=== PATIENT | female | born 1990 | race Hispanic/Latino ===

== ENCOUNTER 2016-04-08 17:45 | Emergency (ER) | payer OTHER ==
[2016-04-08] MEDS ORDERED: NAPROXEN 250 MG TAB As Ordered ONE (18:18)
--- NOTE | 2016-04-08 19:20 | REPUSA ---
CLINICAL HISTORY: Pelvic pain, irregular menses TECHNIQUE: Ultrasound of the pelvis was performed. ULTRASOUND PELVIS : Uterus: 11.2 x 5.7 x 5.3 cm. Normal without masses. Endometrial stripe: 2.2 cm thickness. Right ovary: 4.2 x 3.3 x 3.3 cm, containing a dominant follicle measuring 2.1 cm. Normal vascular nanette w. Left ovary: 2.8 x 2.9 x 1.8 cm. No masses. Normal vascular flow. Pelvic fluid: None. IMPRESSION: 1. Somewhat thickened endometrium without discrete mass. Recommend follow-up ultrasound in4 to 6 week s to assess for normal menstrual variation. 2. 2.1 cm right ovarian follicle.
--- NOTE | 2016-04-08 19:39 | EDDOCDS ---
Nurse's Notes [facility] Name: Helena Gould Age: 25 yrs Sex: Female : 1990 Arrival Date: 04/08/2016 Time: 17:45 Bed PR2 / Private MD: Anju Tafoya PA-C Diagnosis: Pelvic and perineal pain-left;Cystitis Presentation: 04/08 17:49 Presenting complaint: Patient states: Lower left abdominal pain since Wednesday, also ck1 reports pain with intercourse. Has hx of ovarian cyst on left. Denies vaginal bleeding, denies NVD. Risk factors: the patient reports no vaginal bleeding. Adult Sepsis Screening: The patient does not have new or worsening altered mentation. Patient's respiratory rate is less than 22. Systolic blood pressure is greater than 100. Patient has a qSOFA score of 0- Negative Sepsis Screen. Suicide/Homicide risk assessment- the patient denies having any suicidal and/or homicidal ideations and does not present with any other emotional, behavioral or mental health complaints. Status: The patient is a dependent. Transition of care: patient was not received from another setting of care. 17:49 Acuity: MAE Level 3 ck1 17:49 Method Of Arrival: Walkin/Carried/Asstd ck1 Triage Assessment: 17:52 General: Appears in no apparent distress, comfortable, Behavior is appropriate for age, ck1 cooperative. Pain: Location: left lower quadrant Pain currently is 6 out of 10 on a pain scale. At worst was 9 out of 10 on a pain scale. HIV screening NA for this visit Offered previously. Respiratory: Respiratory effort is unlabored, Respiratory pattern is regular, symmetrical. GI: Denies diarrhea, nausea, vomiting. : Denies burning with urination, urinary frequency, vaginal bleeding. Derm: Skin is pink, warm & dry. 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 none - PMHx: Ovarian cyst; - PSHx: Cholecystectomy; - Social history: Smoking status: Patient uses tobacco products, current some day smoker. No barriers to communication noted, The patient speaks fluent Romansh, Speaks appropriately for age. - Family history: Not pertinent. - : The pt / caregiver states he / she is not on anticoagulants. Home medication list is obtained from the patient. - Exposure Risk Screening:: None identified. Screenin:36 Screening information is obtained from the patient. Fall risk: No risks identified. ttb Assistance ADL's: requires no assistance with activities of daily living. Abuse/DV Screen: The patient / caregiver reports he/she is: not in a situation that causes fear, pain or injury. Nutritional screening: No deficits noted. Advance Directives: Currently, there is no health care proxy. home support is adequate. Assessment: 19:36 General: Appears in no apparent distress, well nourished, well groomed, Behavior is ttb appropriate for age, cooperative, pleasant. Pain: Location: lower abd, mild now. Neurological: Level of Consciousness is awake, alert. Cardiovascular: Chest pain is denied. Respiratory: No deficits noted. Airway is patent Respiratory effort is even, unlabored. GI: Abdomen is non- distended Abd is soft Reports lower abdominal pain. Derm: Skin is normal. Vital Signs: 17:47 BP 128 / 66; Pulse 83; Resp 18; Temp 99.1; Pulse Ox 100% ; Weight 60.78 kg; Height 5 elp ft. 3 in. (160.02 cm); 19:36 BP 111 / 76; Pulse 76; Resp 18; Temp 97.7; Pulse Ox 100% on R/A; Pain 2/10; ttb 17:47 Body Mass Index 23.74 (60.78 kg, 160.02 cm) [facility] Vitals: 17:47 Log In Time: April 08, 2016 at 17:45. el ED Course: 17:47 Patient visited by Mira Fonseca PCA. elp 17:47 Anju Tafoya is Private Physician. elp 17:47 Patient visited by Mira Fonseca PCA. elp 17:47 Patient moved to Waiting elp 17:48 Patient moved to Pre RCE elp 17:51 Triage Initiated ck1 17:53 Patient moved to Triage 3 ck1 18:02 Jc Helton PA-C is PSYCHIATRICP. cc10 18:02 Joselyn Hernandez MD is Attending Physician. cc10 18:02 Patient visited by Jc Helton PA-C. cc10 18:02 Patient visited by Coniski, Jc, PA-C. cc10 18:18 Patient name changed from Helena\S\\S\Ramirezaguilar\S\ to Helena\S\ \S\Ramirezaguilar. EDMS 18:20 [facility] Payment Agreement was scanned into [employer] and attached to record. gb 18:22 Patient moved to TR1 ck1 18:25 UA Sent. mcp 18:37 Patient moved to Ultrasound am17 18:52 Patient moved to TR1 am17 19:21 Patient moved to PR2 / 26 ttb 19:21 -US Pelvic Non-Ob Complete Returned. EDMS 19:28 Rene Cantu MD is Referral Physician. cc10 19:36 The patient / caregiver is instructed regarding the plan of care and ED course. ttb Accompanied by Friend, Patient has correct armband on for positive identification. 19:36 No IV's were initiated during this patient's visit. No procedures done that require ttb assistance. Urine collected. Clean catch specimen. Administered Medications: 18:22 Drug: Naproxen 500 mg [naproxen 250 mg tablet (2 tabs)] Route: PO; ck1 Point of Care Testing: Urine : 18:25 hCG Reading: Negative; [facility] Ranges: Order Results: Lab Order: UA; SPEC'M 04/08/17 18:15 Test: APPEARANCE, URINE; Value: HAZY; Range: CLEAR; Status: F Test: COLOR, URINE; Value: YELLOW; Range: YELLOW; Status: F Test: PH,URINE; Value: 5.0; Range: 5.0-9.0; Units: UNITS; Status: F Test: SPECIFIC GRAVITY URINE AUTO; Value: 1.028; Range: 1.002-1.035; Status: F Test: PROTEIN, URINE AUTO; Value: NEGATIVE; Range: NEGATIVE; Units: mg/dL; Status: F Test: GLUCOSE, URINE (UA) AUTO; Value: NEGATIVE; Range: NEGATIVE; Units: mg/dL; Status: F Test: KETONE, URINE AUTO; Value: TRACE; Range: NEGATIVE; Abnormal: Above high normal; Units: mg/dL; Status: F Test: UROBILINOGEN, URINE AUTO; Value: 2.0; Range: 0.0-2.0; Abnormal: Above high normal; Units: mg/dL; Status: F Test: BILIRUBIN, URINE AUTO; Value: NEGATIVE; Range: NEGATIVE; Status: F Test: NITRITE, URINE AUTO; Value: NEGATIVE; Range: NEGATIVE; Status: F Test: LEUKOCYTE ESTERASE, URINE AUTO; Value: 2+; Range: NEGATIVE; Abnormal: Above high normal; Status: F Test: BLOOD, URINE BLOOD; Value: NEGATIVE; Range: NEGATIVE; Status: F Test: WBC, URINE AUTO; Value: 6; Range: 0-3; Abnormal: Above high normal; Units: /HPF; Status: F Test: RBC, URINE AUTO; Value: 4; Range: 0-3; Abnormal: Above high normal; Units: /HPF; Status: F Test: BACTERIA, URINE AUTO; Value: 1+; Range: NEGATIVE; Abnormal: Above high normal; Status: F Test: SQUAMOUS EPITHELIAL CELL UR AU; Value: 3; Range: 0-6; Units: /HPF; Status: F Test: MUCUS, URINE; Value: SMALL; Range: NEGATIVE; Status: F Test: HYALINE CAST, URINE AUTO; Value: 0; Range: 0-1; Units: /LPF; Status: F Radiology Order: -US Pelvic Non-Ob Complete Test: -US Pelvic Non-Ob Complete REASON FOR EXAMINATION: Adnexal Pain r/o Torsion; ; CLINICAL HISTORY: Pelvic pain, irregular menses; TECHNIQUE: Ultrasound of the pelvis was performed.; ; ULTRASOUND PELVIS :; ; Uterus: 11.2 x 5.7 x 5.3 cm. Normal without masses.; ; Endometrial stripe: 2.2 cm thickness.; ; Right ovary: 4.2 x 3.3 x 3.3 cm, containing a dominant follicle measuring 2.1 cm. Normal vascular nanette; w.; ; Left ovary: 2.8 x 2.9 x 1.8 cm. No masses. Normal vascular flow.; ; Pelvic fluid: None.; ; IMPRESSION:; 1. Somewhat thickened endometrium without discrete mass. Recommend follow-up ultrasound in4 to 6 week; s to assess for normal menstrual variation.; 2. 2.1 cm right ovarian follicle.; ; Outcome: 19:28 Discharge ordered by Provider. cc10 19:36 Discharge Assessment: Patient awake, alert and oriented x 3. No cognitive and/or ttb functional deficits noted. Patient verbalized understanding of disposition instructions. Patient awake and alert. patient administered narcotics - no. The following High Risk Discharge criteria are identified: None. Discharged to home ambulatory, with friend. Condition: good Condition: stable Condition: improved. Discharge instructions given to patient, friend, Instructed on discharge instructions, follow up and referral plans. medication usage, no driving heavy equipment, no drinking with medication, Demonstrated understanding of instructions, medications, Pt was receptive of discharge instructions/ teaching. Prescriptions given X 2. Ultrasound Study completed. Property :Personal belongings accompany Pt. 19:38 Patient left the ED. ttb Signatures: Dispatcher [employer] Tiffany Maharaj, RN RN Mary Dubose, Reg Reg gb Michelle,MelRN RN ck1 Vikki Amezquita RN RN ttb Mira Fonseca, JOSE [employer]ARMAC[employer] BILLING ADJUDICATOR Bev Sam am17 Jc Helton, PA-C PA-C cc10 ZULEIKAD
--- NOTE | 2016-04-08 19:39 | EDDOCDS ---
Physician Documentation [facility] Name: Helena Gould Age: 25 yrs Sex: Female : 1990 Arrival Date: 04/08/2016 Time: 17:45 Bed PR2 / Private MD: Anju Tafoya PA-C Disposition: 04/08/16 19:28 Discharged to Home/Self Care. Impression: Pelvic and perineal pain - left, Cystitis. - Condition is Stable. - Discharge Instructions: Pelvic Pain, Female, Urinary Tract Infection. - Prescriptions for Ultram 50 mg Oral Tablet - take 1 tablet by ORAL route every 6 hours As needed MDD: 4 tabs; 12 tablet. Macrobid 100 mg Oral Capsule - take 100 milligrams by ORAL route every 12 hours for 5 days; 10 capsule. - Medication Reconciliation form. - Follow up: Rene Cantu MD; When: Call to arrange an appointment; Reason: Wound/Symptom Recheck, Recheck today's complaints, Worsening of conditions, Continuance of care. - Problem is an ongoing problem. - Symptoms have improved. Historical: - Allergies: No known drug Allergies; - Home Meds: 1. none - PMHx: Ovarian cyst; - PSHx: Cholecystectomy; - Social history: Smoking status: Patient uses tobacco products, current some day smoker. No barriers to communication noted, The patient speaks fluent Ukrainian, Speaks appropriately for age. - Family history: Not pertinent. - : The pt / caregiver states he / she is not on anticoagulants. Home medication list is obtained from the patient. - Exposure Risk Screening:: None identified. 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 3 in. (160.02 cm); 19:36 BP 111 / 76; Pulse 76; Resp 18; Temp 97.7; Pulse Ox 100% on R/A; Pain 2/10; ttb 17:47 Body Mass Index 23.74 (60.78 kg, 160.02 cm) elp MDM: 18:09 UCG by Nursing ordered. cc10 18:09 Naproxen 500 mg PO once; administer with food or milk ordered. cc10 18:09 Financial registration complete. gb 18:10 UA Ordered. EDMS 18:10 -US Pelvic Non-Ob Complete Ordered. EDMS 18:11 DUPLEX SCAN LIMITED (DOPPLER)+US Ordered. EDMS 18:20 [facility] Payment Agreement was scanned into [employer] and attached to record. gb 18:46 UA Reviewed. cc10 Point of Care Testing: Urine : 18:25 hCG Reading: Negative; mcp Ranges: Administered Medications: 18:22 Drug: Naproxen 500 mg [naproxen 250 mg tablet (2 tabs)] Route: PO; ck1 Signatures: Dispatcher [employer] EDSD Mary Naylor, Reg Reg gb Mel MartinezRN RN ck1 Vikki Amezquita RN RN Jc Cano, PA-C PA-C cc10 The chart was reviewed and I authenticate all verbal orders and agree with the evaluation and treatment provided.Attachments: 18:20 [facility] Payment Agreement gb MTDD
--- NOTE | 2016-04-10 20:39 | EDDOCDS ---
Physician Documentation [facility] Name: Helena Gould Age: 25 yrs Sex: Female : 1990 Arrival Date: 04/08/2016 Time: 17:45 Bed PR2 / Private MD: Anju Tafoya PA-C Disposition: 04/08/16 19:28 Discharged to Home/Self Care. Impression: Pelvic and perineal pain - left, Cystitis. - Condition is Stable. - Discharge Instructions: Pelvic Pain, Female, Urinary Tract Infection. - Prescriptions for Ultram 50 mg Oral Tablet - take 1 tablet by ORAL route every 6 hours As needed MDD: 4 tabs; 12 tablet. Macrobid 100 mg Oral Capsule - take 100 milligrams by ORAL route every 12 hours for 5 days; 10 capsule. - Medication Reconciliation form. - Follow up: Rene Cantu MD; When: Call to arrange an appointment; Reason: Wound/Symptom Recheck, Recheck today's complaints, Worsening of conditions, Continuance of care. - Problem is an ongoing problem. - Symptoms have improved. Historical: - Allergies: No known drug Allergies; - Home Meds: 1. none - PMHx: Ovarian cyst; - PSHx: Cholecystectomy; - Social history: Smoking status: Patient uses tobacco products, current some day smoker. No barriers to communication noted, The patient speaks fluent Irish, Speaks appropriately for age. - Family history: Not pertinent. - : The pt / caregiver states he / she is not on anticoagulants. Home medication list is obtained from the patient. - Exposure Risk Screening:: None identified. 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 3 in. (160.02 cm); 19:36 BP 111 / 76; Pulse 76; Resp 18; Temp 97.7; Pulse Ox 100% on R/A; Pain 2/10; ttb 17:47 Body Mass Index 23.74 (60.78 kg, 160.02 cm) elp MDM: 18:09 UCG by Nursing ordered. cc10 18:09 Naproxen 500 mg PO once; administer with food or milk ordered. cc10 18:09 Financial registration complete. gb 18:10 UA Ordered. EDMS 18:10 -US Pelvic Non-Ob Complete Ordered. EDMS 18:11 DUPLEX SCAN LIMITED (DOPPLER)+US Ordered. EDMS 18:20 [facility] Payment Agreement was scanned into [employer] and attached to record. gb 18:46 UA Reviewed. cc10 04/09 19:12 T-Sheet-- Draft Copy was scanned into [employer] and attached to record. klr Point of Care Testing: Urine : 04/08 18:25 hCG Reading: Negative; mcp Ranges: Administered Medications: 18: Drug: Naproxen 500 mg [naproxen 250 mg tablet (2 tabs)] Route: PO; ck1 Signatures: Dispatcher [employer] EDMS Mary Naylor, Reg Reg gb Shelly-Mel Cline RN RN ck1 Vikki Amezquita RN RN ttb Jc Helton PALeonaC PA-C cc10 Radha Campos klkatia The chart was reviewed and I authenticate all verbal orders and agree with the evaluation and treatment provided.Attachments: 18:20 [facility] Payment Agreement gb 04/09 19:12 T-Sheet-- Draft Copy klr Chart Complete MTDD
--- NOTE | 2016-04-10 20:39 | EDDOCDS ---
Physician Documentation [facility] Name: Helena Gould Age: 25 yrs Sex: Female : 1990 Arrival Date: 04/08/2016 Time: 17:45 Bed PR2 / Private MD: Anju Tafoya PA-C Disposition: 04/08/16 19:28 Discharged to Home/Self Care. Impression: Pelvic and perineal pain - left, Cystitis. - Condition is Stable. - Discharge Instructions: Pelvic Pain, Female, Urinary Tract Infection. - Prescriptions for Ultram 50 mg Oral Tablet - take 1 tablet by ORAL route every 6 hours As needed MDD: 4 tabs; 12 tablet. Macrobid 100 mg Oral Capsule - take 100 milligrams by ORAL route every 12 hours for 5 days; 10 capsule. - Medication Reconciliation form. - Follow up: Rene Cantu MD; When: Call to arrange an appointment; Reason: Wound/Symptom Recheck, Recheck today's complaints, Worsening of conditions, Continuance of care. - Problem is an ongoing problem. - Symptoms have improved. Historical: - Allergies: No known drug Allergies; - Home Meds: 1. none - PMHx: Ovarian cyst; - PSHx: Cholecystectomy; - Social history: Smoking status: Patient uses tobacco products, current some day smoker. No barriers to communication noted, The patient speaks fluent Setswana, Speaks appropriately for age. - Family history: Not pertinent. - : The pt / caregiver states he / she is not on anticoagulants. Home medication list is obtained from the patient. - Exposure Risk Screening:: None identified. 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 3 in. (160.02 cm); 19:36 BP 111 / 76; Pulse 76; Resp 18; Temp 97.7; Pulse Ox 100% on R/A; Pain 2/10; ttb 17:47 Body Mass Index 23.74 (60.78 kg, 160.02 cm) elp MDM: 18:09 UCG by Nursing ordered. cc10 18:09 Naproxen 500 mg PO once; administer with food or milk ordered. cc10 18:09 Financial registration complete. gb 18:10 UA Ordered. EDMS 18:10 -US Pelvic Non-Ob Complete Ordered. EDMS 18:11 DUPLEX SCAN LIMITED (DOPPLER)+US Ordered. EDMS 18:20 [facility] Payment Agreement was scanned into [employer] and attached to record. gb 18:46 UA Reviewed. cc10 04/09 19:12 T-Sheet-- Draft Copy was scanned into [employer] and attached to record. klr Point of Care Testing: Urine : 04/08 18:25 hCG Reading: Negative; mcp Ranges: Administered Medications: 18: Drug: Naproxen 500 mg [naproxen 250 mg tablet (2 tabs)] Route: PO; ck1 Signatures: Dispatcher [employer] EDMS Mary Naylor, Reg Reg gb Shelly-Mel Cline RN RN ck1 Vikki Amezquita RN RN ttb Jc Helton PALeonaC PA-C cc10 Radha Campos klkatia The chart was reviewed and I authenticate all verbal orders and agree with the evaluation and treatment provided.Attachments: 18:20 [facility] Payment Agreement gb 04/09 19:12 T-Sheet-- Draft Copy klr Chart Complete MTDD
--- NOTE | 2016-04-10 20:39 | EDDOCDS ---
Nurse's Notes [facility] Name: Helena Gould Age: 25 yrs Sex: Female : 1990 Arrival Date: 04/08/2016 Time: 17:45 Bed PR2 / Private MD: Anju Tafoya PA-C Diagnosis: Pelvic and perineal pain-left;Cystitis Presentation: 04/08 17:49 Presenting complaint: Patient states: Lower left abdominal pain since Wednesday, also ck1 reports pain with intercourse. Has hx of ovarian cyst on left. Denies vaginal bleeding, denies NVD. Risk factors: the patient reports no vaginal bleeding. Adult Sepsis Screening: The patient does not have new or worsening altered mentation. Patient's respiratory rate is less than 22. Systolic blood pressure is greater than 100. Patient has a qSOFA score of 0- Negative Sepsis Screen. Suicide/Homicide risk assessment- the patient denies having any suicidal and/or homicidal ideations and does not present with any other emotional, behavioral or mental health complaints. Status: The patient is a dependent. Transition of care: patient was not received from another setting of care. 17:49 Acuity: MAE Level 3 ck1 17:49 Method Of Arrival: Walkin/Carried/Asstd ck1 Triage Assessment: 17:52 General: Appears in no apparent distress, comfortable, Behavior is appropriate for age, ck1 cooperative. Pain: Location: left lower quadrant Pain currently is 6 out of 10 on a pain scale. At worst was 9 out of 10 on a pain scale. HIV screening NA for this visit Offered previously. Respiratory: Respiratory effort is unlabored, Respiratory pattern is regular, symmetrical. GI: Denies diarrhea, nausea, vomiting. : Denies burning with urination, urinary frequency, vaginal bleeding. Derm: Skin is pink, warm & dry. 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 none - PMHx: Ovarian cyst; - PSHx: Cholecystectomy; - Social history: Smoking status: Patient uses tobacco products, current some day smoker. No barriers to communication noted, The patient speaks fluent Azeri, Speaks appropriately for age. - Family history: Not pertinent. - : The pt / caregiver states he / she is not on anticoagulants. Home medication list is obtained from the patient. - Exposure Risk Screening:: None identified. Screenin:36 Screening information is obtained from the patient. Fall risk: No risks identified. ttb Assistance ADL's: requires no assistance with activities of daily living. Abuse/DV Screen: The patient / caregiver reports he/she is: not in a situation that causes fear, pain or injury. Nutritional screening: No deficits noted. Advance Directives: Currently, there is no health care proxy. home support is adequate. Assessment: 19:36 General: Appears in no apparent distress, well nourished, well groomed, Behavior is ttb appropriate for age, cooperative, pleasant. Pain: Location: lower abd, mild now. Neurological: Level of Consciousness is awake, alert. Cardiovascular: Chest pain is denied. Respiratory: No deficits noted. Airway is patent Respiratory effort is even, unlabored. GI: Abdomen is non- distended Abd is soft Reports lower abdominal pain. Derm: Skin is normal. Vital Signs: 17:47 BP 128 / 66; Pulse 83; Resp 18; Temp 99.1; Pulse Ox 100% ; Weight 60.78 kg; Height 5 elp ft. 3 in. (160.02 cm); 19:36 BP 111 / 76; Pulse 76; Resp 18; Temp 97.7; Pulse Ox 100% on R/A; Pain 2/10; ttb 17:47 Body Mass Index 23.74 (60.78 kg, 160.02 cm) [facility] Vitals: 17:47 Log In Time: April 08, 2016 at 17:45. el ED Course: 17:47 Patient visited by Mira Fonseca PCA. elp 17:47 Anju Tafoya is Private Physician. elp 17:47 Patient visited by Mira Fonseca PCA. elp 17:47 Patient moved to Waiting elp 17:48 Patient moved to Pre RCE elp 17:51 Triage Initiated ck1 17:53 Patient moved to Triage 3 ck1 18:02 [facility] cc[facility] 18:02 Joselyn Hernandez MD is Attending Physician. cc10 18:02 Patient visited by Jc Helton PA-C. cc10 18:02 Patient visited by Coniski, Jc, PA-C. cc10 18:18 Patient name changed from Helena\S\\S\Ramirezaguilar\S\ to Helena\S\ \S\Ramirezaguilar. EDMS 18:20 [facility] [place] Agreement was scanned into [email or web address] and attached to record. gb 18:22 Patient moved to TR1 ck1 18:25 UA Sent. mcp 18:37 Patient moved to Ultrasound am17 18:52 Patient moved to TR1 am17 19:21 Patient moved to PR2 / 26 ttb 19:21 -US Pelvic Non-Ob Complete Returned. EDMS 19:28 Rene aCntu MD is Referral Physician. cc10 19:36 The patient / caregiver is instructed regarding the plan of care and ED course. ttb Accompanied by Friend, Patient has correct armband on for positive identification. 19:36 No IV's were initiated during this patient's visit. No procedures done that require ttb assistance. Urine collected. Clean catch specimen. 04/09 19:12 T-Sheet-- Draft Copy was scanned into [email or web address] and attached to record. klr Administered Medications: 04/08 18:22 Drug: Naproxen 500 mg [naproxen 250 mg tablet (2 tabs)] Route: PO; ck1 Point of Care Testing: Urine : 18:25 hCG Reading: Negative; [facility] Ranges: Order Results: Lab Order: UA; SPEC'M 04/08/16 18:15 Test: APPEARANCE, URINE; Value: HAZY; Range: CLEAR; Status: F Test: COLOR, URINE; Value: YELLOW; Range: YELLOW; Status: F Test: PH,URINE; Value: 5.0; Range: 5.0-9.0; Units: UNITS; Status: F Test: SPECIFIC GRAVITY URINE AUTO; Value: 1.028; Range: 1.002-1.035; Status: F Test: PROTEIN, URINE AUTO; Value: NEGATIVE; Range: NEGATIVE; Units: mg/dL; Status: F Test: GLUCOSE, URINE (UA) AUTO; Value: NEGATIVE; Range: NEGATIVE; Units: mg/dL; Status: F Test: KETONE, URINE AUTO; Value: TRACE; Range: NEGATIVE; Abnormal: Above high normal; Units: mg/dL; Status: F Test: UROBILINOGEN, URINE AUTO; Value: 2.0; Range: 0.0-2.0; Abnormal: Above high normal; Units: mg/dL; Status: F Test: BILIRUBIN, URINE AUTO; Value: NEGATIVE; Range: NEGATIVE; Status: F Test: NITRITE, URINE AUTO; Value: NEGATIVE; Range: NEGATIVE; Status: F Test: LEUKOCYTE ESTERASE, URINE AUTO; Value: 2+; Range: NEGATIVE; Abnormal: Above high normal; Status: F Test: BLOOD, URINE BLOOD; Value: NEGATIVE; Range: NEGATIVE; Status: F Test: WBC, URINE AUTO; Value: 6; Range: 0-3; Abnormal: Above high normal; Units: /HPF; Status: F Test: RBC, URINE AUTO; Value: 4; Range: 0-3; Abnormal: Above high normal; Units: /HPF; Status: F Test: BACTERIA, URINE AUTO; Value: 1+; Range: NEGATIVE; Abnormal: Above high normal; Status: F Test: SQUAMOUS EPITHELIAL CELL UR AU; Value: 3; Range: 0-6; Units: /HPF; Status: F Test: MUCUS, URINE; Value: SMALL; Range: NEGATIVE; Status: F Test: HYALINE CAST, URINE AUTO; Value: 0; Range: 0-1; Units: /LPF; Status: F Radiology Order: -US Pelvic Non-Ob Complete Test: -US Pelvic Non-Ob Complete REASON FOR EXAMINATION: Adnexal Pain r/o Torsion; ; CLINICAL HISTORY: Pelvic pain, irregular menses; TECHNIQUE: Ultrasound of the pelvis was performed.; ; ULTRASOUND PELVIS :; ; Uterus: 11.2 x 5.7 x 5.3 cm. Normal without masses.; ; Endometrial stripe: 2.2 cm thickness.; ; Right ovary: 4.2 x 3.3 x 3.3 cm, containing a dominant follicle measuring 2.1 cm. Normal vascular nanette; w.; ; Left ovary: 2.8 x 2.9 x 1.8 cm. No masses. Normal vascular flow.; ; Pelvic fluid: None.; ; IMPRESSION:; 1. Somewhat thickened endometrium without discrete mass. Recommend follow-up ultrasound in4 to 6 week; s to assess for normal menstrual variation.; 2. 2.1 cm right ovarian follicle.; ; Outcome: 19:28 Discharge ordered by Provider. cc10 19:36 Discharge Assessment: Patient awake, alert and oriented x 3. No cognitive and/or ttb functional deficits noted. Patient verbalized understanding of disposition instructions. Patient awake and alert. patient administered narcotics - no. The following High Risk Discharge criteria are identified: None. Discharged to home ambulatory, with friend. Condition: good Condition: stable Condition: improved. Discharge instructions given to patient, friend, Instructed on discharge instructions, follow up and referral plans. medication usage, no driving heavy equipment, no drinking with medication, Demonstrated understanding of instructions, medications, Pt was receptive of discharge instructions/ teaching. Prescriptions given X 2. Ultrasound Study completed. Property :Personal belongings accompany Pt. 19:38 Patient left the ED. ttb Signatures: Dispatcher [employer] EDMS Tiffany Gonzalez RN RN Mary Dubose, Amadeo Reg Mel Colvin RN RN ck1 Vikki Amezquita RN RN ttb Mira Fonseca, WAREHOUSEMAN WAREHOUSEMAN ryanp Bev Serrano am17 Jc Helton PA-C PARachelle cc10 Radha Campos Chart Complete MTDCandie
== END 2016-04-08 19:38 | disposition home or self-care (01) ==
LOC: M ED 17:45
DX: N30.00 Acute cystitis without hematuria (principal); N83.209 Unspecified ovarian cyst, unspecified side; F17.210 Nicotine dependence, cigarettes, uncomplicated

== ENCOUNTER → 2016-06-19 | Outpatient (CLI) | payer OTHER ==
[2016-06-19 18:23] LABS: PROGESTERONE 7.7 NG/ML
[2016-06-19 18:24] LABS: FOLLICLE STIMULATING HORMONE 3.7 mIU/mL; LUTEINIZING HORMONE 18.8 mIU/mL; PROLACTIN 15.8 NG/ML
[2016-06-19 18:29] LABS: FREE T4 0.81 NG/DL (0.76-1.46)
== END ==
LOC: M SMT 14:58
PROVIDERS: ATTEND Specialist
DX: N91.1 Secondary amenorrhea (principal)

== ENCOUNTER 2016-07-12 18:30 | Emergency (ER) | payer OTHER ==
[~2016-07-12] VITALS: Ht 160 cm; Wt 64.4 kg
[2016-07-12] MEDS ORDERED: PREN1TAB11 PO (18:47)
--- NOTE | 2016-07-12 21:00 | REPUSA ---
Clinical history: Pain. Findings: Real-time transabdominal and transvaginal ultrasound images of the pelvis were obtained. Th ere is a single intrauterine gestation. The pole is noted, with the crown rump length of 0.2 cm . heart rate measures 94 bpm. There is no evidence of a subchorionic hemorrhage. An anteverted uterus is noted measuring 11.2 x 6.2 cm. The uterus demonstrates normal echotexture and echogenicity. The left ovary measures 4.0 x 2.1 x 2.7 cm. The right ovary measures 3.3 x 2.4 x 3.0 cm. Is a si mple left ovarian cyst. No adnexal masses are seen. Color Doppler flow is seen within both ovaries. T here is no evidence of free fluid. Impression: 1. Single live intrauterine measuring 5 weeks 5 days with heart rate of 94 bpm. 2. Left ovarian corpus luteum cyst
[2016-07-12 21:15] VITALS: BP 107/64
== END 2016-07-12 21:19 | disposition home or self-care (01) ==
LOC: M ED 19:41
DX: N83.12 Corpus luteum cyst of left ovary (principal); Z79.899 Other long term (current) drug therapy; Z3A.01 Less than 8 weeks gestation of pregnancy

== ENCOUNTER → 2016-07-22 | Outpatient (CLI) | payer OTHER ==
[~2016-07-22] MED LIST: PREN1TAB11 PO
[2016-07-22 18:10] LABS: BASO % 0.2 % (0.0-1.0); EOS % 0.3 % (0.0-3.0); LARGE UNSTAINED CELL # 0.1 K/mm3 (0.0-0.4); LARGE UNSTAINED CELL % 1.4 % (0.0-4.0); LYMPH # 1.7 K/mm3 (1.5-6.5); LYMPH % 19.4 % (24.0-44.0); MEAN CORPUSCULAR HEMOGLOBIN 32.6 pg (27.0-33.0); MEAN CORPUSCULAR HGB CONC 33.3 g/dl (32.0-36.5); MEAN CORPUSCULAR VOLUME 97.9 fl (80.0-96.0); MONO # 0.5 K/mm3 (0.0-0.8); MONO % 6.2 % (0.0-5.0); NEUTROPHILS # 5.9 K/mm3 (1.8-7.7); NEUTROPHILS % 72.4 % (36.0-66.0); PLATELET COUNT, AUTOMATED 243 k/mm3 (150-450); RED CELL DISTRIBUTION WIDTH 12.5 % (11.5-14.5); WHITE BLOOD COUNT 8.2 K/mm3 (4.0-10.0)
[2016-07-24 10:52] LABS: HBsAg Prenatal NEGATIVE (NEGATIVE)
== END ==
LOC: M SMT 14:23
PROVIDERS: ATTEND Specialist
DX: Z34.81 Encounter for supervision of other normal pregnancy, first trimester (principal)

== ENCOUNTER → 2016-10-14 | Outpatient (CLI) | payer OTHER ==
--- NOTE | 2016-10-14 23:28 | REP ---
Clinical: Anatomical evaluation. Comparison: 07/12/2016 . Findings: Examination demonstrates a single live intrauterine in cephalic presentation. motion is identified by technologist. Placenta is noted anteriorly and grade zero without evidence for placenta previa or abruption. Amniotic fluid volume is normal. Cervix measures 4.5 cm in length and appears closed. No evidence for nuchal cord. Gestational age by first US 19 weeks 1 day with LIZZY 03/09/2017 . Gestational age by current measurements 19 weeks 5 days with LIZZY 03/05/2017 . FHR equals 141 beats per minute. BPD 4.7 cm 20 weeks 1 day HC 17.5 cm 20 weeks 0 days AC 14.4 cm 19 weeks 5 days FL 3.2 cm 20 weeks 1 day HL 3.0 cm 19 weeks 6 days HC/AC ratio 1.22 Estimated weight 320 grams ( 74th percentile). Anatomical assessment demonstrates normal structures including cranium, choroid plexus, cavum, cerebellum/posterior fossa, facial features, lungs, four-chamber heart/ventricular outflow tracts, diaphragm, stomach, cord insertion/three-vessel cord, kidneys/bladder, spine, and extremities. Impression: Single live intrauterine in cephalic presentation demonstrating appropriate interval growth compared to first ultrasound. Anatomical assessment is complete and normal. Signed by Iam Arguelles MD 10/14/2016 11:19 P
== END ==
LOC: M SMT 13:48
PROVIDERS: ATTEND Specialist
DX: Z34.82 Encounter for supervision of other normal pregnancy, second trimester (principal); Z36 Encounter for antenatal screening of mother; Z3A.19 19 weeks gestation of pregnancy

== ENCOUNTER → 2016-12-01 | Outpatient (CLI) | payer OTHER ==
[2016-12-01 14:10] LABS: BASO % 0.3 % (0.0-1.0); EOS # 0.1 10^3/uL (0.0-0.50); EOS % 0.8 % (0.0-3.0); IMMATURE GRANULOCYTE % 0.3 % (0-0); LYMPH # 1.7 10^3/uL (1.5-6.5); LYMPH % 21.4 % (24.0-44.0); MEAN CORPUSCULAR HEMOGLOBIN 31.7 pg (27.0-33.0); MEAN CORPUSCULAR HGB CONC 33.6 g/dl (32.0-36.5); MEAN CORPUSCULAR VOLUME 94.4 fl (80.0-96.0); MONO # 0.7 10^3/uL (0.0-0.8); MONO % 8.9 % (0.0-5.0); NEUTROPHILS # 5.4 10^3/uL (1.8-7.7); NEUTROPHILS % 68.3 % (36.0-66.0); PLATELET COUNT, AUTOMATED 198 10^3/uL (150-450); RED CELL DISTRIBUTION WIDTH 13.4 % (11.5-14.5); WHITE BLOOD COUNT 7.9 10^3/uL (4.0-10.0)
== END ==
LOC: M SMT 10:15
PROVIDERS: ATTEND Specialist
DX: Z34.82 Encounter for supervision of other normal pregnancy, second trimester (principal); Z36.9 Encounter for antenatal screening, unspecified

== ENCOUNTER 2017-01-11 07:12 | Emergency (ER) | payer OTHER ==
[~2017-01-11] VITALS: Ht 160 cm; Wt 75.0 kg
[2017-01-11] MEDS ORDERED: CEFD1CAP8 PO (07:25)
[2017-01-11] MEDS ORDERED: TYLE500T78 PO (07:25)
[2017-01-11 09:26] VITALS: BP 118/55
[2017-01-11] MEDS ORDERED: TUSSSUS6 PO (14:17)
== END 2017-01-11 09:29 | disposition home or self-care (01) ==
LOC: M ED 07:12
DX: O99.89 Other specified diseases and conditions complicating pregnancy, childbirth and the puerperium (principal); J01.90 Acute sinusitis, unspecified; Z79.899 Other long term (current) drug therapy

== ENCOUNTER → 2017-02-11 | Outpatient (CLI) | payer OTHER | LOC: M SMT 13:38 | DX: O36.63X2 Maternal care for excessive fetal growth, third trimester, fetus 2 (principal) ==

== ENCOUNTER → 2017-02-11 | Outpatient (REF) | payer OTHER | LOC: M LAB REF 12:44 | DX: Z34.83 Encounter for supervision of other normal pregnancy, third trimester (principal); Z36.85 Encounter for antenatal screening for Streptococcus B | CPT/HCPCS: 87081 ==

== ENCOUNTER 2017-03-04 07:18 | Inpatient (IN) | payer OTHER ==
[2017-03-04] MEDS: LACTATED RINGER'S 1000 ML IV (08:26)
[2017-03-04 08:30] LABS: HEMATOCRIT 40.6 % (36.0-47.0); HEMOGLOBIN 13.6 g/dl (12.0-16.0); MEAN CORPUSCULAR HGB CONC 33.5 g/dl (32.0-36.5); MEAN CORPUSCULAR VOLUME 92.5 fl (80.0-96.0); PLATELET COUNT, AUTOMATED 132 10^3/uL (150-450); RED BLOOD COUNT 4.39 10^6/uL (4.00-5.40); RED CELL DISTRIBUTION WIDTH 15.5 % (11.5-14.5); WHITE BLOOD COUNT 6.7 10^3/uL (4.0-10.0)
[2017-03-04 09:07] LABS: AMPHETAMINES URINE REFLEX NEGATIVE (NEGATIVE); BARBITURATES URINE REFLEX NEGATIVE (NEGATIVE); BENZODIAZEPINES URINE REFLEX NEGATIVE (NEGATIVE); CANNABINOIDS URINE REFLEX NEGATIVE (NEGATIVE); COCAINE METABOLITE URINE REFLE NEGATIVE (NEGATIVE); METHADONE URINE REFLEX NEGATIVE (NEGATIVE); OPIATES URINE REFLEX NEGATIVE (NEGATIVE); PHENCYCLIDINE URINE REFLEX NEGATIVE (NEGATIVE)
[2017-03-04] MEDS ORDERED: MORPHINE PRES-FREE INJ 10 MG/10 ML VIAL (J2274) As Ordered (09:44)
[2017-03-04] MEDS: BICITRA 30ML SOLN UDC PO (09:50)
[2017-03-04] MEDS: LR 1,000 ML IV ×3 (09:52→19:01)
[2017-03-04] MEDS ORDERED: PHENYLephrine HCL 500 MCG/5 ML (100MCG/ML) SYRINGE (J2370) As Ordered ×2 (10:22→11:00)
[2017-03-04] MEDS ORDERED: dexameTHASONE 4 MG/ML 1ML VIAL (J1100) As Ordered (10:25)
[2017-03-04] MEDS ORDERED: ONDANSETRON 4MG/2ML VIAL (J2405) As Ordered (10:59)
[2017-03-04] MEDS ORDERED: KETOROLAC 60 MG/2 ML VIAL (J1885) As Ordered (11:04)
[2017-03-04] MEDS ORDERED: ONDANSETRON 4MG/2ML VIAL (J2405) IV (11:15)
[2017-03-04] MEDS ORDERED: fentaNYL 100 MCG/2 ML INJECTION (J3010) As Ordered (11:30)
[2017-03-04] MEDS ORDERED: PERCOCET 5MG/325MG TAB PO (11:45)
[2017-03-04] MEDS ORDERED: fentaNYL 100 MCG/2 ML INJECTION (J3010) IV (11:45)
[2017-03-04] MEDS: OXYTOCIN DRIP 30 UNITS in APPROPRIATE DILUENT 1 EA IV (13:04)
[2017-03-04] MEDS: CEFAZOLIN SOD 1 GM in APPROPRIATE DILUENT 1 EA IV (13:04)
[2017-03-04] MEDS: PRENATAL VITAMINS CHEWABLE TABLET PO (13:09)
[2017-03-04] MEDS: KETOROLAC 30 MG/ML VIAL (J1885) IV ×2 (17:06→23:01)
[2017-03-04] MEDS: DOCUSATE SODIUM 100 MG CAP PO (23:01)
[2017-03-05] MEDS: LR 1,000 ML IV ×2 (00:21→00:22)
[2017-03-05] MEDS: KETOROLAC 30 MG/ML VIAL (J1885) IV (05:16)
[2017-03-05 07:30] LABS: HEMATOCRIT 30.7 % (36.0-47.0); MEAN CORPUSCULAR HEMOGLOBIN 31.2 pg (27.0-33.0); MEAN CORPUSCULAR HGB CONC 33.2 g/dl (32.0-36.5); MEAN CORPUSCULAR VOLUME 93.9 fl (80.0-96.0); PLATELET COUNT, AUTOMATED 115 10^3/uL (150-450); RED BLOOD COUNT 3.27 10^6/uL (4.00-5.40); RED CELL DISTRIBUTION WIDTH 15.8 % (11.5-14.5)
[2017-03-05 07:52] LABS: HEMOGLOBIN 10.2 g/dl (12.0-16.0)
[2017-03-05] MEDS: PRENATAL VITAMINS CHEWABLE TABLET PO (08:38)
[2017-03-05] MEDS: IBUPROFEN 800 MG TAB PO ×2 (13:16→21:18)
[2017-03-05] MEDS: PERCOCET 5MG/325MG TAB PO ×2 (16:31→23:41)
[2017-03-05] MEDS: RHOGAM 300 MCG (1500 IU) INJ (J2790) IM (21:17)
[2017-03-05] MEDS: MEASLES,MUMPS,RUBELLA VACCINE INJ (MMR-II) (90707) SC (21:17)
[2017-03-05] MEDS: MOM 30ML SUSPENSION UDC PO (21:18)
[2017-03-06] MEDS: PERCOCET 5MG/325MG TAB PO ×2 (04:10→10:35)
[2017-03-06] MEDS: IBUPROFEN 800 MG TAB PO (04:10)
[2017-03-06] MEDS: PRENATAL VITAMINS CHEWABLE TABLET PO (08:18)
[2017-03-06] MEDS: ADACEL/BOOSTRIX VACCINE (DIPHTH/PERTUSS/ACELL/TETANUS)0.5ML SYR (90715) IM (10:37)
[2017-03-06] MEDS: INFLUENZA QUADRIVALENT PF VACCINE 0.5ML SYRINGE (90686) IM (10:38)
== END 2017-03-06 11:14 | disposition home or self-care (01) | DRG 766 ==
LOC: M LDI 07:18 → M OBS 13:22
PROVIDERS: Specialist
PROC: 10D00Z1 Extraction of Products of Conception, Low, Open Approach (ICD-10-PCS; principal; 2017-03-04 09:30)
DX: O36.63X0 Maternal care for excessive fetal growth, third trimester, not applicable or unspecified (principal); Z37.0 Single live birth; Z3A.39 39 weeks gestation of pregnancy; Z87.59 Personal history of other complications of pregnancy, childbirth and the puerperium